=== PATIENT | female | born 1970 | race Caucasian/White ===

== ENCOUNTER → 2017-01-16 | Outpatient (CLI) | payer OTHER | LOC: HEART 5 10:00 → EDSEX 10:07 | DX: R94.31 Abnormal electrocardiogram [ECG] [EKG] (principal) ==

== ENCOUNTER → 2017-07-01 | Outpatient (CLI) | payer OTHER | LOC: HEART 5 10:30 | DX: I10 Essential (primary) hypertension (principal) ==

== ENCOUNTER 2021-09-19 20:06 | Emergency (ER) | payer OTHER ==
[~2021-09-19 20:06] MED LIST: ASPIR 8181 MG PO; CARNITINE PO; CLA PO; COLACE 100MG C100 MG PO; COZAAR50 MG PO; ELIQUIS2.5 MG PO; FISH OIL 1,2001 EAC1 PO; MICROZIDE12.5 MG PO; OMEPRAZOLE20 M1 PO; PERCOCET 5/325 T1 EA PO; TYLENOL PM EX-1 EACH PO; [UNRECOGNIZED DRUG - OTHER] PO; [UNRECOGNIZED DRUG - OTHER] PO; [UNRECOGNIZED DRUG - OTHER] PO; [UNRECOGNIZED DRUG - REMARK] PO
== END 2021-09-20 00:25 | disposition home or self-care (01) ==
LOC: ER1 20:06
DX: U07.1 COVID-19 (principal); Z23 Encounter for immunization; Z91.040 Latex allergy status; I10 Essential (primary) hypertension
CPT/HCPCS: 99283; M0245

== ENCOUNTER → 2021-11-06 | Outpatient (CLI) | payer OTHER | LOC: SLEEP 13:54 | DX: G47.33 Obstructive sleep apnea (adult) (pediatric) (principal) | CPT/HCPCS: 95810 ==